=== PATIENT | male | born 1970 | race Caucasian/White ===

== ENCOUNTER 2017-10-20 19:00 | Emergency (ER) | payer MEDICAID ==
[~2017-10-20] VITALS: Ht 175.3 cm; Wt 96.0 kg
[~2017-10-20 19:00] MED LIST: CLIN-80 PO
[2017-10-20 19:02] VITALS: BP 150/101
[2017-10-20 19:58] LABS: PARTIAL THROMBOPLASTIN TIME 29 SECONDS (22-32); PROTHROMBIN TIME 10.1 SECONDS (9.0-12.0)
[2017-10-20 20:09] LABS: ALANINE AMINOTRANSFERASE 66 U/L (12-78); ALBUMIN 3.9 G/DL (3.4-5.0); ALBUMIN/GLOBULIN RATIO 1.1 (1.1-1.5); ALKALINE PHOSPHATASE 84 IU/L (46-116); ANION GAP 9 (8-16); ASPARTATE AMINO TRANSFERASE 33 U/L (10-37); BILIRUBIN,TOTAL 0.6 MG/DL (0.1-1.0); BLOOD UREA NITROGEN 15 MG/DL (7-18); BUN/CREATININE RATIO 13.8 (5.4-32.0); CALCIUM 8.9 MG/DL (8.5-10.1); CHLORIDE 102 MMOL/L (99-107); CREATININE 1.09 MG/DL (0.60-1.10); GLUCOSE 108 MG/DL (70-104); SODIUM 139 MMOL/L (135-145); TOTAL CARBON DIOXIDE 28.2 MMOL/L (24-32); TOTAL PROTEIN 7.5 G/DL (6.4-8.2); eGFR 73 ML/MIN
[2017-10-20 20:56] LABS: BASOPHILS % (AUTO) 0.4 % (0-1); EOSINOPHILS # (AUTO) 0.3 X10'3 (0-0.9); EOSINOPHILS % (AUTO) 3.4 % (0-6); HEMATOCRIT 46.6 % (42.0-52.0); HEMOGLOBIN 16.4 g/dl (14.0-17.9); LYMPHOCYTES # (AUTO) 2.6 X10'3 (1.1-4.8); MEAN CORPUSCULAR HEMOGLOBIN 31.3 PG (27.0-31.0); MEAN CORPUSCULAR HGB CONC 35.3 % (33.0-36.5); MEAN CORPUSCULAR VOLUME 88.7 FL (78-98); MEAN PLATELET VOLUME 8.3 FL (7.4-10.4); MONOCYTES # (AUTO) 0.7 X10'3 (0-0.9); NEUTROPHILS # (AUTO) 4.6 X10'3 (1.8-7.7); NEUTROPHILS % (AUTO) 56.2 % (42-75); PLATELET COUNT 218 X10'3 (140-440); RED BLOOD COUNT 5.25 X10'6 (4.70-6.10); RED CELL DISTRIBUTION WIDTH 12.8 % (11.5-14.5); WHITE BLOOD COUNT 8.3 X10'3 (4.5-11.0)
[2017-10-20] MEDS ORDERED: ipratropium/albuterol 3ml nebule NEB ONE (21:00)
[2017-10-20] MEDS ORDERED: methylPREDNISolone sod succ 125mg/2ml vial IV ONE (21:00)
[2017-10-20] MEDS ORDERED: AZIT250T PO (21:41)
[2017-10-20] MEDS ORDERED: GUAI473S11 PO (21:41)
[2017-10-20] MEDS ORDERED: ALBU8HFA PO (21:41)
[2017-10-20] MEDS ORDERED: methylPREDNISolone sod succ 125mg/2ml vial IM ONE (21:45)
== END 2017-10-20 21:50 | disposition home or self-care (01) ==
LOC: ER 19:01
DX: J20.9 Acute bronchitis, unspecified (principal); I10 Essential (primary) hypertension; F17.200 Nicotine dependence, unspecified, uncomplicated; Z88.0 Allergy status to penicillin
CPT/HCPCS: 36415; 71046; 80053; 83605; 84484; 85025; 85610; 85730; 87040; 93005; 94640; 94760; 96372; 96374; 99285; J2930

== ENCOUNTER 2025-02-14 08:59 | Emergency (ER) | payer MEDICAID, OTHER ==
[~2025-02-14] VITALS: Ht 175.3 cm; Wt 128.0 kg
[~2025-02-14 08:59] MED LIST changes: +CLIN-224 PO; -CLIN-80 PO
[2025-02-14 09:05] VITALS: BP 147/91; PULSE 91; RESP 18; O2SAT 94
--- NOTE | 2025-02-14 10:50 | RADIOLOGY REPORT ---
CHEST RADIOGRAPH Indication: Cough, SOB Technique: Frontal and lateral view of the chest was obtained Comparison: None FINDINGS: Lines and Tubes: None Lungs: Clear Pleura: No effusion. No pneumothorax. Cardiomediastinal contours: Unremarkable Bones: Unremarkable IMPRESSION: No evidence of acute disease.
[2025-02-14 11:44] LABS: MEAN PLATELET VOLUME 8.5 FL (7.4-10.4); RED CELL DISTRIBUTION WIDTH 16.8 % (11.5-14.5)
[2025-02-14 12:00] LABS: CREATININE 0.84 MG/DL (0.60-1.10); TOTAL CARBON DIOXIDE 35.3 MMOL/L (24-32); eCRCL 103 ML/MIN; eGFR > 90 ML/MIN
[2025-02-14 12:10] LABS: PRO BRAIN NATRIURETIC PEPTIDE 62 PG/ML (0-125)
[2025-02-14] MEDS ORDERED: AZIT-164 PO (12:54)
--- NOTE | 2025-02-14 12:55 | Physician Documentation ---
History of Present Illness Chief Complaint: See Chief Complaint Stated Complaint: COLD SYMPTOMS AND NUMBNESS IN FEET Time Seen by MD: 11:34 HPI Bacterial who presents emergency department for evaluation of swelling to his lower extremity that has been chronic along with some venous stasis that he says he was diagnosed with recently I am patient also reports that he had swelling in his hands initially although that has resolved patient reports he spent the entirety of the [place] maybe a little bit sunburned I am drink heavily yesterday. Also reports that he has had a persistent cough that has now become productive and he has a COPD. Medication Reconciliation Allergies: Coded Allergies: Penicillins (Verified Allergy, Unknown, 02/14/25) Scheduled Azithromycin (Zithromax), 250 MG PO DAILY Clindamycin HCL* (Clindamycin HCL*), 1 CAP PO Q6H Past Medical History Past Medical History: No Pertinent History, Hypertension Past Surgical History: no surgical history Alcohol Use: Heavy Drug Use: none Lives In: Home Occupation: employed Physical Exam Vital Signs: Temperature: 98.5, Heart Rate: 91, Respiratory Rate: 18, BP: 147/91, Pulse Oximetry: 94, Weight: 128.000 Oxygen Flow Rate: 0 Progress Results/Orders Results/Orders Orders - GIBRAN BEDOLLA [employer] Chest,Two Views (02/14/25 10:23) Urinalysis, Cult If Indicated (02/14/25 12:15) Completed Orders - GIBRAN BEDOLLA [employer] Cbc/Diff (02/14/25 10:23) CMP (02/14/25 10:23) PBNP (02/14/25 10:23) Chest,Two Views (02/14/25 10:23) Vital Signs 02/14/25 09:05 Temp 98.5 Pulse 91 Resp 18 B/P (MAP) 147/91 Pulse Ox 94 O2 Flow Rate 0 Laboratory Tests Test 02/14/25 11:17 White Blood Count 8.2 Red Blood Count 6.54 H Hemoglobin 18.5 *H Hematocrit 56.1 H Mean Corpuscular Volume 85.8 Mean Corpuscular Hemoglobin 28.4 Mean Corpuscular Hemoglobin Concent 33.1 Red Cell Distribution Width 16.8 H Platelet Count 193 Mean Platelet Volume 8.5 Neutrophils (%) (Auto) 64.0 Lymphocytes (%) (Auto) 23.7 Monocytes (%) (Auto) 9.7 Eosinophils (%) (Auto) 2.0 Basophils (%) (Auto) 0.6 Neutrophils # (Auto) 5.3 Lymphocytes # (Auto) 1.9 Monocytes # (Auto) 0.8 Eosinophils # (Auto) 0.2 Basophils # (Auto) 0.1 CBC Comment Sodium Level 139 Potassium Level 4.3 Chloride Level 99 Carbon Dioxide Level 35.3 H Anion Gap 5 L Blood Urea Nitrogen 18 Creatinine 0.84 Estimated GFR/1.73 m2 > 90 BUN/Creatinine Ratio 21.4 H Glucose Level 94 Calcium Level 8.8 Total Bilirubin 1.1 H Aspartate Amino Transf (AST/SGOT) 44 H Alanine Aminotransferase (ALT/SGPT) 52 Alkaline Phosphatase 93 Pro-B-Type Natriuretic Peptide 62 Total Protein 7.0 Albumin 3.3 L Globulin 3.7 Albumin/Globulin Ratio 0.9 L Chemistry Comments Departure Disposition: HOME / SELF CARE / HOMELESS Impression: Primary Impression: Dehydration after exertion Additional Impressions: Dehydration determined by examination COPD (chronic obstructive pulmonary disease) URI (upper respiratory infection) Condition: Stable Discharge Instructions: Acute Bronchitis, Adult Referrals: NO PRIMARY CARE PROVIDER (PCP) Prescriptions Azithromycin (Zithromax) 250 Mg Tablet 250 MG PO DAILY, #6 TAB Take 2 tabs on day one, one tab daily thereafter Prov: GIBRAN BEDOLLA 02/14/25 Education Educated: Patient Educated regarding: treatment, need for follow up Signature Scribe Signature: . Attestation: I have reviewed this case [id number] with the PA, including physical examination, laboratory and imaging results as appropriate. The patient was evaluated [id number] and I agree with the PA's notes. I agree with the findings, evaluation and disposition. GIBRAN BEDOLLA Feb 14, 2025 12:55 LUCERO RAYMOND MD Feb 15, 2025 16:21
[2025-02-14 12:59] VITALS: TEMP 98.5
== END 2025-02-14 13:00 | disposition home or self-care (01) ==
LOC: ER 09:00
DX: J06.9 Acute upper respiratory infection, unspecified (principal); J44.9 Chronic obstructive pulmonary disease, unspecified; E86.0 Dehydration; Z88.0 Allergy status to penicillin
CPT/HCPCS: 36415; 71046; 80053; 83880; 85025; 99284